=== PATIENT | female | born 1955 | race Caucasian/White ===

== ENCOUNTER 2021-02-25 09:57 | Emergency (ER) | payer MEDICARE, SELFPAY ==
--- NOTE | ~2021-02-25 | CT_ITS ---
EXAMINATION: CT BRAIN CT CERVICAL SPINE WITHOUT CONTRAST XR RIGHT HAND/WRIST XR CHEST EXAM CLINICAL INFORMATION: Fall, weakness and SOB. COMPARISON: None. TECHNIQUE: 5 mm thin axial and reformatted 2 mm thin sagittal and coronal images of brain were obtained. Subsequently, axial 3 mm thin and reformatted 2 mm thin sagittal and coronal images of cervical spine were obtained. DLP 995 mGy-cm. Right hand/wrist 4 views. Chest supine portable 1 view. FINDINGS: CT Brain: There is no acute intra-axial, extra-axial bleed, masses or midline shift. There is no acute infarction in evolution. The lateral ventricles are symmetrical in size and configuration without enlargement. The tirado to white matter difference is maintained normal. There is no edema. Bone windows reveal no calvarial abnormality. There is no scalp soft tissue abnormality. Bilateral paranasal sinuses and mastoid air cells are well aerated. CT Cervical Spine: There is maintained cervical lordosis. There is exaggerated thoracic kyphosis. There is grade 1 anterolisthesis C4 over C5, C5 over C6 and C6 over C7. The craniovertebral junction and the C1-C2 alignment is normal. No visible acute fracture, dislocation or subluxation seen. The neural foramina are patent bilaterally. There are bilateral facet joint arthropathy slightly greater on the left than right. The prevertebral and paravertebral soft tissues are normal. XR Right Hand/Right Wrist. There is a nondisplaced distal radial fracture and a mildly displaced ulnar styloid process fracture. There is moderate dorsal wrist soft tissue swelling. Diffuse osteopenia is noted. XR Chest: The lungs are well-expanded and clear of acute pneumonic process. Plate like atelectasis right midlung. Heart size and pulmonary vascularity is normal. Mild dextroscoliosis. CT/CT cervical spine wo con IMPRESSION: There is no acute intracranial process seen. Exaggerated thoracic kyphosis. There is no acute fracture or dislocation of cervical spine. There is bilateral facet joint arthropathy. There is a nondisplaced fracture distal radius and a minimally displaced fracture ulnar styloid process. Mild platelike atelectasis right midlung. No acute pneumonic process seen. Mild scoliosis..
--- NOTE | ~2021-02-25 | CT_ITS ---
EXAMINATION: CT ANGIOGRAM OF THE CHEST WITH AND WITHOUT CONTRAST (CT PULMONARY ANGIOGRAM FOR PE) CLINICAL INFORMATION: Fall, dizziness, altered mental status. COMPARISON: Chest x-ray earlier today TECHNIQUE: Prior to contrast administration, noncontrast localization images were obtained. Subsequently, multidetector volumetric imaging was performed from the thoracic inlet to below the diaphragms following the administration of 58 mL Omnipaque 350 intravenous contrast. No contrast reaction reported Sagittal, coronal, and MIP oblique sagittal reformatted images were obtained on the CT workstation, uploaded to PACS, and reviewed. This CT examination was performed using dose optimization techniques as appropriate, variously including the following: *Automated exposure control *Adjustment of mA and/or kV according to patient size (this includes techniques or standardized protocols for targeted exams where dose is matched to indication/reason for exam; i.e. extremities or head) *Use of iterative reconstruction technique Total exam dose-length product 321 mGy-cm FINDINGS: The heart is normal in size. There is no pericardial effusion. No pulmonary filling defect to suggest pulmonary embolus. Normal caliber thoracic aorta. No gross mediastinal lymphadenopathy. No enlarged axillary lymph nodes. Central airways are patent although some mild peripheral mucous plugging is noted. Lungs are adequately aerated. Mild emphysematous changes are present. Mild dependent atelectasis. No lobar consolidation. No pleural effusion or pneumothorax. No suspicious pulmonary nodules visualized. Visualized portion of the upper abdomen are grossly unremarkable. Diffuse osteopenia. Mild diffuse degenerative changes of the spine. CT/CT angio chest PE protocol IMPRESSION: 1. No pulmonary embolus. 2. No lobar consolidation, pleural effusion or pneumothorax. VTE: negative
[2021-02-25 10:03] VITALS: BP 144/96; PULSE 96; RESP 16; TEMP 36.6; O2SAT 95; BMI 25.0
--- NOTE | 2021-02-25 10:13 | ECG_ITS ---
Test Reason : FALL Blood Pressure : / mmHG Vent. Rate : 084 BPM Atrial Rate : 084 BPM P-R Int : 152 ms QRS Dur : 072 ms QT Int : 386 ms P-R-T Axes : 045 016 050 degrees QTc Int : 456 ms Normal sinus rhythm Low voltage QRS Otherwise normal ECG No previous ECGs available Referred By: Juan Phillips Electronically Signed By:TEO YOUSIF MD
--- NOTE | 2021-02-25 10:14 | ED_ITS ---
HPI - Fall General Chief Complaint: Fall Stated Complaint: wrist pain Time Seen by Provider: 02/25/21 10:12 Source: patient Mode of arrival: EMS Limitations: no limitations History of Present Illness HPI Narrative: 66 year old female past medical history significant for dementia presents to the emergency department with right wrist pain, and lip laceration status post fall. According to EMS patient was on her morning walk, she fell and is now complaining of right wrist pain. She was collared out of precaution. Patient states that her right wrist is really hurting, she denies headache, neck pain, vision changes. Patient states she is not sure why she fell, she states she thinks she tripped but she does not really remember. She denies preceding chest pain, confusion, shortness of breath. She appears to be little bit confused at this time, not answering questions very clearly. She is unable to elaborate on her responses. Patient denies chest pain, shortness of breath, fevers, chills, nausea, vomiting, abdominal pain, weakness, headache, neck pain, vision changes. This fall was unwitnessed, unsure who called 911. Patient is not on blood thinners MD complaint: fall Fall from: standing Fall witnessed: no Place fall occurred: other (walking around in her neighborhood ) Loss of consciousness: yes Prolonged down time: unclear Symptoms prior to fall: none Context: tripped/slipped Location of injury: mouth (upper lip ) Related Data Home Medications Medication Instructions Recorded Confirmed calcium carbonate 500 mg calcium 500 mg PO DAILY 02/25/21 02/25/21 (1,250 mg) tablet (Calcium 500) cholecalciferol (vitamin D3) 25 25 mcg PO DAILY 02/25/21 02/25/21 mcg (1,000 unit) tablet (Vitamin D3) donepezil 10 mg tablet 10 mg PO BEDTIME 02/25/21 02/25/21 lamotrigine 25 mg tablet 50 mg PO DAILY 02/25/21 02/25/21 memantine 10 mg tablet 10 mg PO BID@0800,1200 02/25/21 02/25/21 olanzapine 5 mg tablet 5 mg PO QID 02/25/21 02/25/21 Allergies Allergy/AdvReac Type Severity Reaction Status Date / Time Unable to Assess Allergy Unverified 02/25/21 10:13 Review of Systems Review of Systems: Constitutional : No Weight loss, No Fever, No Chills, No Fatigue, No Malaise ENT/Mouth : No sore throat, No Rhinorrhea Eyes: No Eye Pain, No Swelling, No Redness Cardiovascular : No Chest Pain, No SOB, No Dyspnea on Exertion, No Orthopnea, No Edema, No Palpitations Respiratory : No Cough, No Sputum, No Wheezing Gastrointestinal : No Nausea, No Vomiting, No Diarrhea, No Constipation, No abdominal Pain, No Hematochezia, No Melena Genitourinary : No Dysuria, No Urinary Frequency, No Hematuria, Musculoskeletal : + joint pain, No Myalgias, No Joint Swelling Skin : No Skin Lesions, No rash, + laceration Neuro : No Weakness, No Numbness, No Dizziness, No Headache All other systems reviewed and are negative PMFSH Past Medical History Attestation statement: The following information was validated with the patient. Source: old records reviewed and nursing notes reviewed Medical History (Updated 02/25/21 @ 14:50 by SARAH Campos) Dementia Social History Social History Alcohol intake: current Alcohol intake frequency: 0-2 drinks per day Alcohol type: wine Patient Tobacco Use Status: Never used Tobacco Use of substances other than those prescribed or required for medical reasons: No Advance Directives: No Advance Directives Information Provided: No Physical Exam Vital Signs: Vital Signs: Last Vital Signs Temp 97.7 F 02/25/21 14:04 Pulse 87 02/25/21 14:04 Resp 16 02/25/21 14:04 BP 132/81 02/25/21 14:04 Pulse Ox 99 02/25/21 14:04 Body Mass Index 25.0 Appearance: Alert.? Oriented X3.? No acute distress.?+ patient is collared Head: Normocephalic, atraumatic, no step-offs or deformities Eyes: Pupils equal, round and reactive to light.? ENT: Pharynx normal.?+ small laceration to upper lip. Bleeding well controlled. Neck: Normal inspection.? Neck supple.? CVS: Normal heart rate and rhythm.? Pulses normal.? Respiratory: No respiratory distress.? Breath sounds normal.? Abdomen: Soft and nontender.? Skin: Skin warm and dry.? Normal skin color.? Normal skin turgor.? Extremities: No lower extremity edema.? No calf ttp. 5/5 strength to left upper and bilateral lower extremities 3/5 strength to right wrist due to pain + pain to palpation over right wrist + pain with ROM of right wrist. Back: No midline tenderness, no C-spine tenderness, full range of motion, no CVA tenderness bilaterally Neuro: Oriented X 3.? No motor deficit.? No sensory deficit. Course Reevaluation(s) Reevaluation #1: Lab show no acute infection, no anemia, no acute electrolyte abnormalities. Coags within normal limits. trop negative. COVID negative. CT of head/brain and C-spine pending. X-ray of right hand pending. Time: 11:15 Reevaluation #2: CT shows no acute intracranial processes. It shows an exaggerated thoracic kyphosis. No acute fractures or dislocation of the cervical spine. There is a nondisplaced fracture distal radius and a minimally displaced fx ulnar styloid process. Chest xray shows mild platelike atelectasis right midlung but no acute pnuemonic process seen. Patient will be placed in a sugar tong splint. D-dimer pending Time: 14:48 Reevaluation #3: D-dimer is noted to be elevated this could be secondary to an acute fracture however this was an unwitnessed fall, patient has dementia and is not a good historian, for this reason a CT will be done to rule out PE Time: 15:30 Additional Reevaluation(s): Sign out will be given to Dr. Ortiz . MDM - Fall MDM Narrative Medical decision making narrative: 1025 66-year-old female past medical history significant for dementia presents the emergency department with right wrist pain, and a small laceration to upper lip status post but patient believes to be a trip and fall. Patient was brought into EMS, and she fell unwitnessed while walking. She denies preceding symptoms. Patient states that she is just having right hip pain. She is collared out of precaution. She is not on blood thinners. On physical examination patient appears comfortable and she is lying on the stretcher in no acute distress. She is answering questions easily. She is collared. S1 and S2 appreciated free of murmurs. Lungs are clear to au scultation bilaterally. Abdomen soft nontender nondistended. Pupils equal round and reactive to light. No lower extremity edema.? No calf ttp. 5/5 strength to left upper and bilateral lower extremities 3/5 strength to right wrist due to pain + pain to palpation over right wrist + pain with ROM of right wrist. 2+ pulses equal and bilateral upper extremities. Head normal cephalic atraumatic no step-offs or deformities. No midline tenderness, no C-spine tenderness. No other distracting injuries are noted. Plan at this time is to obtain a head and neck CT. Basic labs. EKG, troponin, x-ray of right hand and wrist. The chest x-ray. Creatinine kinase, PTT, PT INR, magnesium. Medical Records Attestation: I reviewed the patient's medical records. Lab Data Attestation: I reviewed the patient's lab results. Result diagrams: 02/25/21 11:11 02/25/21 11:10 Labs: Lab Results 02/25/21 02/25/21 02/25/21 Range/Units 11:10 11:10 11:10 WBC (4.8-10.8) X10*3/uL RBC (4.20-5.50) X10*6/uL Hgb (12.0-16.0) g/dl Hct (37.0-47.0) % MCV (80.0-98.0) fL MCH (27.0-33.0) pg MCHC (31.0-35.0) g/dl RDW (11.0-16.0) % Plt Count (160-400) X10*3/uL MPV (9.4-12.3) fL Immature Gran % (Auto) (0.0-0.4) % Neut % (Auto) (45-73) % Lymph % (Auto) (20-40) % [place] % (Auto) (2-11) % Eos % (Auto) (0-4) % Baso % (Auto) (0-2) % Lymph # (Auto) (1.2-4.9) X10*3/uL [place] # (Auto) (0.1-1.2) X10*3/uL Eos # (Auto) (0.0-0.4) X10*3/uL Baso # (Auto) (0.0-0.2) X10*3/uL Abs Immat Gran (auto) (0.00-0.03) X10*3/uL Absolute Neuts (auto) (2.0-8.3) x10*3/uL Absolute Nucleated RBC (0.0-0.012) X10*3/uL Nucleated RBC % (auto) (0.0-0.2) /100WBC PT (9.9-13.0) SEC INR (0.9-1.1) APTT (24.1-38.0) SEC D-Dimer NG/ML Sodium 141 (135-145) mmol/L Potassium 4.2 (3.3-5.1) mmol/L Chloride 103 (96-108) mmol/L Carbon Dioxide 29 (22-29) mmol/L Anion Gap 13 (12-20) BUN 14 (9-16) mg/dL Creatinine 0.86 (0.5-1.4) mg/dL Estim Creat Clear Calc 57.0 Estimated GFR > 60 Random Glucose 120 H (60-115) mg/dL Calcium 10.0 (8.4-10.2) mg/dL Magnesium 2.1 (1.6-2.6) mg/dL Total Bilirubin 0.6 (0.0-1.0) mg/dL AST 25 (5-31) U/L ALT 25 (0-31) U/L Alkaline Phosphatase 99 (39-117) U/L Total Creatine Kinase 107 (26-140) U/L Troponin I High Sens < 3.5 (<3.5-17.0) ng/L Total Protein 6.9 (6.5-8.0) g/dL Albumin 4.5 (3.5-5.0) g/dL COVID-19 ([facility]) Negative (Negative) COVID-19 Clin Com See Note 02/25/21 02/25/21 Range/Units 11:10 11:11 WBC 8.0 (4.8-10.8) X10*3/uL RBC 5.13 (4.20-5.50) X10*6/uL Hgb 15.3 (12.0-16.0) g/dl Hct 46.2 (37.0-47.0) % MCV 90.1 (80.0-98.0) fL MCH 29.8 (27.0-33.0) pg MCHC 33.1 (31.0-35.0) g/dl RDW 12.3 (11.0-16.0) % Plt Count 194 (160-400) X10*3/uL MPV 9.0 L (9.4-12.3) fL Immature Gran % (Auto) 0.4 (0.0-0.4) % Neut % (Auto) 81.8 H (45-73) % Lymph % (Auto) 9.1 L (20-40) % [place] % (Auto) 7.1 (2-11) % Eos % (Auto) 1.1 (0-4) % Baso % (Auto) 0.5 (0-2) % Lymph # (Auto) 0.7 L (1.2-4.9) X10*3/uL [place] # (Auto) 0.6 (0.1-1.2) X10*3/uL Eos # (Auto) 0.1 (0.0-0.4) X10*3/uL Baso # (Auto) 0.0 (0.0-0.2) X10*3/uL Abs Immat Gran (auto) 0.03 (0.00-0.03) X10*3/uL Absolute Neuts (auto) 6.6 (2.0-8.3) x10*3/uL Absolute Nucleated RBC 0.000 (0.0-0.012) X10*3/uL Nucleated RBC % (auto) 0.0 (0.0-0.2) /100WBC PT 11.1 (9.9-13.0) SEC INR 1.0 (0.9-1.1) APTT 35.1 (24.1-38.0) SEC D-Dimer 2082 NG/ML Sodium (135-145) mmol/L Potassium (3.3-5.1) mmol/L Chloride (96-108) mmol/L Carbon Dioxide (22-29) mmol/L Anion Gap (12-20) BUN (9-16) mg/dL Creatinine (0.5-1.4) mg/dL Estim Creat Clear Calc Estimated GFR Random Glucose (60-115) mg/dL Calcium (8.4-10.2) mg/dL Magnesium (1.6-2.6) mg/dL Total Bilirubin (0.0-1.0) mg/dL AST (5-31) U/L ALT (0-31) U/L Alkaline Phosphatase (39-117) U/L Total Creatine Kinase (26-140) U/L Troponin I High Sens (<3.5-17.0) ng/L Total Protein (6.5-8.0) g/dL Albumin (3.5-5.0) g/dL COVID-19 ([facility]) (Negative) COVID-19 Clin Com Imaging Data Chest x-ray and right wrist: Attestation: I personally reviewed and interpreted this imaging study as follows: Radiologist's impression: XR/XR chest 1V IMPRESSION: There is no acute intracranial process seen. ? Exaggerated thoracic kyphosis. There is no acute fracture or dislocation of cervical spine. There is bilateral facet joint arthropathy. ? There is a nondisplaced fracture distal radius and a minimally displaced fracture ulnar styloid process. ? Mild platelike atelectasis right midlung. No acute pneumonic process seen. Mild scoliosis.. CT head/neck/ cspine : Attestation: I personally reviewed and interpreted this imaging study as follows: Radiologist's impression: CT/CT cervical spine wo con IMPRESSION: There is no acute intracranial process seen. ? Exaggerated thoracic kyphosis. There is no acute fracture or dislocation of cervical spine. There is bilateral facet joint arthropathy. ? There is a nondisplaced fracture distal radius and a minimally displaced fracture ulnar styloid process. ? Mild platelike atelectasis right midlung. No acute pneumonic process seen. Mild scoliosis.. ECG Data Attestation: I personally reviewed and interpreted this ECG as follows: ECG interpretation date: 02/25/21 ECG interpretation time: 12:53 Prior ECG tracings: not available for review Interpretation: Ventricular rate of 84, OH interval normal QRS normal QTC/QTC normal. EKG shows normal sinus rhythm, low voltage. No ST elevations or inversions, no acute ischemia. No previous EKGs to compare with. Critical Care Time Critical Care Time Critical Care Time: No Discharge Plan Discharge Clinical Impression: Fall, Distal radius fracture, Fracture of ulnar styloid Patient Disposition: Home, Self-Care Instructions: Fall Prevention for Older Adults (ED), Fall Prevention (ED) Additional Instructions: Follow-up with your primary care provider this week and Orthopedics Return to the emergency department with new or worsening symptoms. In case of emergency call 911 Prescriptions: No Action donepezil 10 mg tablet 10 mg PO BEDTIME RF: 0 olanzapine 5 mg tablet 5 mg PO QID RF: 0 lamotrigine 25 mg tablet 50 mg PO DAILY RF: 0 calcium carbonate [Calcium 500] 500 mg calcium (1,250 mg) Tablet 500 mg PO DAILY RF: 0 memantine 10 mg tablet 10 mg PO BID@0800,1200 RF: 0 cholecalciferol (vitamin D3) [Vitamin D3] 25 mcg (1,000 unit) Tablet 25 mcg PO DAILY RF: 0 Referrals: Gio Cedeno MD [Physician] - 1 week Catracho So DO [Primary Care Provider] - 2 days
--- NOTE | 2021-02-25 11:11 | PHA.MEDREC ---
Pharmacy Consult ? Medication Reconciliation Pharmacy has completed the medication reconciliation. There are no remarkable issues for provider's attention. Patient's confirmed patient's olanzapine dose is 5 mg QID and that she is no longer taking quetiapine. Keerthi Smith, PharmD
[2021-02-25 11:15] LABS: MANUAL DIFF FLAG NO
[2021-02-25 11:23] LABS: Basophils Percent Auto 0.5 % (0-2); Eosinophils Absolute Auto 0.1 X10*3/uL (0.0-0.4); Eosinophils Percent Auto 1.1 % (0-4); Hematocrit 46.2 % (37.0-47.0); Hemoglobin 15.3 g/dl (12.0-16.0); Imm Gran Abs Auto 0.03 X10*3/uL (0.00-0.03); Imm Gran Pct Auto 0.4 % (0.0-0.4); Lymphocytes Absolute Auto 0.7 X10*3/uL (1.2-4.9); Lymphocytes Percent Auto 9.1 % (20-40); Mean Corpuscular HGB Conc 33.1 g/dl (31.0-35.0); Mean Corpuscular Hemoglobin 29.8 pg (27.0-33.0); Mean Corpuscular Volume 90.1 fL (80.0-98.0); Monocytes Absolute Auto 0.6 X10*3/uL (0.1-1.2); Monocytes Percent Auto 7.1 % (2-11); Neutrophils Absolute Auto 6.6 x10*3/uL (2.0-8.3); Neutrophils Percent Auto 81.8 % (45-73); Platelet Count 194 X10*3/uL (160-400); Red Blood Count 5.13 X10*6/uL (4.20-5.50); Red Cell Distribution Width 12.3 % (11.0-16.0)
[2021-02-25 11:26] LABS: Prothrombin Time 11.1 SEC (9.9-13.0)
[2021-02-25 11:29] LABS: Partial Thromboplastin Time 35.1 SEC (24.1-38.0)
[2021-02-25 11:33] LABS: COVID-19 Test Negative (Negative)
[2021-02-25] MEDS: Acetaminophen 325 MG TABLET 650 MG PO (11:35)
[2021-02-25 11:39] LABS: Alanine Aminotransferase 25 U/L (0-31); Albumin Level 4.5 g/dL (3.5-5.0); Alkaline Phosphatase 99 U/L (39-117); Anion Gap 13 (12-20); Aspartate Amino Transferase 25 U/L (5-31); Bilirubin Total 0.6 mg/dL (0.0-1.0); Blood Urea Nitrogen 14 mg/dL (9-16); Carbon Dioxide 29 mmol/L (22-29); Chloride 103 mmol/L (96-108); Estimated Glomerular Filt Rate > 60; Glucose Random 120 mg/dL (60-115); Magnesium 2.1 mg/dL (1.6-2.6); Potassium 4.2 mmol/L (3.3-5.1); Sodium 141 mmol/L (135-145); Total Protein 6.9 g/dL (6.5-8.0)
[2021-02-25 11:44] LABS: Troponin-I High Sensitivity < 3.5 ng/L (<3.5-17.0)
[2021-02-25 14:04] VITALS: BP 132/81; PULSE 87; RESP 16; TEMP 36.5; O2SAT 99
[2021-02-25 15:01] LABS: D Dimer 2082 NG/ML
[2021-02-25] MEDS: iohexoL 350 MG/ML 100 ML INFUS..BTL IV (16:44)
[2021-02-25 17:35] VITALS: BP 126/97; PULSE 95; RESP 18; O2SAT 98
--- NOTE | 2021-02-25 17:36 | PC.NURSE ---
pt resting in the stretcher, respirations even and unlabored, vs stable, pt reports feeling much better but unable to give a number for her pain level at this time, some dry blood around the lips and teeth but no broken teeth noticed family member at bedside.
== END 2021-02-25 18:15 | disposition home or self-care (01) ==
PROVIDERS: Physician Assistant; Emergency Provider Emergency Medicine; PCP Family Medicine
DX: S52.501A Unspecified fracture of the lower end of right radius, initial encounter for closed fracture (principal); M25.531 Pain in right wrist; M54.2 Cervicalgia; G44.309 Post-traumatic headache, unspecified, not intractable; W01.0XXA Fall on same level from slipping, tripping and stumbling without subsequent striking against object, initial encounter; Y93.9 Activity, unspecified; Y92.9 Unspecified place or not applicable; Y99.9 Unspecified external cause status; Z20.822 Contact with and (suspected) exposure to COVID-19; Z79.899 Other long term (current) drug therapy
CPT/HCPCS: 36415; 70450; 71045; 71275; 72125; 73110; 73130; 80053; 82550; 83735; 84484; 85025; 85379; 85610; 85730; 87635; 93005; 99285; Q9967

== ENCOUNTER → 2021-02-28 10:39 | Outpatient (BNVA) | payer MEDICARE, SELFPAY | PROVIDERS: PCP Family Medicine; Visit Provider Physician Assistant | DX: S52.501A Unspecified fracture of the lower end of right radius, initial encounter for closed fracture (principal) | CPT/HCPCS: 99202 ==

== ENCOUNTER 2021-03-03 09:18 | Day surgery (SDC) | payer MEDICARE, SELFPAY ==
[2021-03-03] VITALS (7 sets, daily range): BP systolic 109–135; BP diastolic 48–78; PULSE 81–91; RESP 14–16; TEMP 36.4–36.8; O2SAT 95–100; BMI 25.7
--- NOTE | ~2021-03-03 | FL_ITS ---
EXAMINATION: XR FLUOROSCOPY WITH IMAGES CLINICAL INFORMATION: Fracture reduction COMPARISON: X-rays dated 02/25/2021 TECHNIQUE: Fluoroscopy performed by Dr Ma. Fluoroscopy time: 61.5 seconds DAP: [id number] Images: 4 FL/FL guidance in OR FINDINGS/IMPRESSION: * Images demonstrate placement of a plate and screws across the comminuted fracture of the distal radial metaphysis with improved alignment of the fracture fragments. Stable alignment of the minimally displaced ulnar styloid avulsion fracture. * Please see operative report.
[2021-03-03] MEDS: Lactated Ringers 1,000 ML 100 ML IVCONT (10:03)
--- NOTE | 2021-03-03 10:17 | HO.ANESPROP2 ---
[facility] Active Problems Active Problems: All Active Problems (Updated 02/28/21 @ 12:52 by Pia Arias PA-C) Distal radius fracture, right (Acute) Past Medical History Medical History Dementia Social History Social History (Updated 02/28/21 @ 11:04 by Onesimo Bernabe) Alcohol intake: current Alcohol intake frequency: 0-2 drinks per day Alcohol type: wine Patient Tobacco Use Status: Never used Tobacco Use of substances other than those prescribed or required for medical reasons: No Are you DNR?: No Advance Directives: Yes Advance Directives on File: Yes Advance Directives Date on File: 03/03/21 Recently lost weight without trying: No Nutrition Risks: No Nutritional Risk Patient : No Current occupational status: disabled Current occupation: rt handed Meds Allergies Allergy/AdvReac Type Severity Reaction Status Date / Time No Known Allergies Allergy Verified 02/28/21 14:09 Home Medications Medication Instructions Recorded Confirmed Last Taken Type calcium carbonate 500 mg calcium 500 mg PO DAILY 02/25/21 02/25/21 02/25/21 History (1,250 mg) tablet (Calcium 500) cholecalciferol (vitamin D3) 25 25 mcg PO DAILY 02/25/21 02/25/21 02/25/21 History mcg (1,000 unit) tablet (Vitamin D3) donepezil 10 mg tablet 10 mg PO BEDTIME 02/25/21 02/25/21 02/24/21 History lamotrigine 25 mg tablet 50 mg PO DAILY 02/25/21 02/25/21 03/03/21 History memantine 10 mg tablet 10 mg PO BID@0800,1200 02/25/21 02/25/21 03/03/21 History olanzapine 5 mg tablet 5 mg PO QID 02/25/21 02/25/21 02/25/21 History Exam Exam Date and Time: March 03, 2021 1017 Height,Weight and Vital Signs: Height 5 ft 4 in Weight 68.039 kg Last Vital Signs Temp 98.3 F 03/03/21 09:49 Pulse 81 03/03/21 09:49 Resp 16 03/03/21 09:49 BP 130/78 03/03/21 09:49 Pulse Ox 97 03/03/21 09:49 Airway Mallampati Class: III TM Dist: >3cm Neck ROM: Full
--- NOTE | 2021-03-03 11:32 | P.OP_ITS ---
Operative Note Operative Note Date of Service: 03/03/21 Narrative: Operative Note Narrative: Preop diagnosis: 1. Right Distal radius fracture, intra-articular comminuted Postop diagnosis: Same Procedure: 1. Right Distal radius fracture open reduction internal fixation, 2 part intra-articular Surgeon: Gemma Ma MD Anesthesia: Mac plus regional block Findings: Intra-articular distal radius fracture Implants: A 3 hole Accu Med volar locking plate, with 4. X 2.3 mm locking pegs/screws, and 3 3.5 mm cortical screws Tourniquet time: 39 minutes EBL: 5.0 ml Specimen: None Drains: None Complications: None Disposition: Brought to the recovery room in stable condition Plan: Follow-up in 10-14 days for wound check, suture removal and postop radiographs The patient will be placed in either a short-arm cast or a volar wrist splint. Encouraged no lifting of anything heavier than a cell phone. Please encourage active and passive range of motion of the digits. Follow-up at 4-5 weeks postop for repeat radiographs. Indications: The patient is a 66 year old woman with Alzheimer's disease with a right comminuted intra-articular distal radius fracture . The risks and benefits of operative treatment, including but not limited to risk of damage to blood vessels, nerves, tendons, infection, recurrence, persistent pain or numbness, incomplete resolution of preoperative symptoms, or need for further surgery were discussed with the patient and they wished to proceed with surgery. Procedure: Once consent was obtained patient was brought back to the operating suite and placed in the operating table in a supine position. A regional block was performed by the anesthesia team. Perioperative antibiotics and anesthesia was administered by the anesthesia team. A tourniquet was applied to the proximal aspect of the right upper extremity and the limb was prepped and draped in a standard surgical fashion. The limb was elevated exsanguinated with Esmarch bandage and the tourniquet inflated to 250 mm of mercury for a total tourniquet time of 39 minutes. The FluoroScan was used throughout the case to assess our reduction, and facilitate implant placement. I made an 8 cm longitudinal incision over the right distal aspect of the flexor carpi radialis tendon. The incision was made through the skin to the subcutaneous tissue using a 15. Blade. Then carefully dissected down to flexor carpi radialis tendon she tenotomy scissors. The FCR tendon sheath was then incised longitudinally using tenotomy scissors under direct visualization. The FCR tendon was then retracted ulnarly. I then made a longitudinal incision in the volar forearm fascia through the floor of FCR tendon sheath using tenotomy scissors under direct visualization. I identified the interval between the radial artery and the flexor tendons. This interval was developed further with my index finger, releasing some of the muscular fibers of the flexor pollicis longus. A dull weatlander retractor was then placed. I then created an ulnarly based flap of the pronator quadratus by releasing the radial and distal edges using a 15. Blade. A Jasmine elevator was used to elevate the pronator quadratus from the volar surface of the distal radius. This then revealed to us our distal radius fracture. An open reduction was then performed on our distal radius fracture. I then placed a short narrow 3 hole Accu Med volar locking plate on the volar surface of the distal radius. I placed a single K-wire through the distal aspect of the plate and into the distal radius. This was assessed using fluoroscopic images. I was satisfied with the placement of our plate. I then placed 4. X 2.3 mm locking screws/pegs in the distal aspect of the plate and distal radius by 1st drilling bicortically with a 1.8 mm drill bit, measuring with a depth gauge, and placing the appropriate length locking screws/pegs. The placement of our plate and screws was then assessed again using fluoroscopic images. The once satisfied with the placement of the volar locking plate and screws on the distal aspect of the distal radius, the plate was then reduced to the shaft of the radius. I then placed 3 3.5 mm cortical screws to the proximal aspect of the plate and into the shaft of the radius. This was done by 1st drilling bicortically with a 2.8 mm drill bit, measuring with a depth gauge, and placing the appropriate length screw. Final radiographs were then obtained. The DRUJ was assessed and found to be stable on exam. I was satisfied with our reduction and placement of all implants. At this point the wound was irrigated with normal saline. The pronator emory dratus was reduced back over the volar locking plate using some 3-0 Vicryl suture material. The tourniquet was then deflated and hemostasis was obtained with a brief period of local pressure and bipolar monopolar electrocautery. The subcutaneous layer was then reapproximated using some 4-0 Vicryl suture, and the skin edges were reapproximated using some 5 0 Prolene suture. The wound was then infiltrated with some 1% lidocaine with epinephrine postop pain control. A sterile dressing and a short dorsal splint allowing for active flexion and extension of the digits was applied. The patient appears to have tolerated the procedure well and with no complications. All digits were well vascularized conclusion of the case.
--- NOTE | 2021-03-03 11:32 | MHC.SHP ---
Pre-Procedural Eval Section A Date of Service: 03/03/21 The patient is an INPATIENT: No Changes since office visit: No Cold of Flu in the past 2 weeks, No New Medical Problems, No Changes in Medication and No Patient answered all questions The History & Physical has been completed within 30 days and I have reviewed it.: Yes Section B Chief Complaint: wrist fx Allergies: Allergies Allergy/AdvReac Type Severity Reaction Status Date / Time No Known Allergies Allergy Verified 02/28/21 14:09 Plan I have reviewed the history and physical and performed a pertinent physical examination on my patient. No changes have occurred unless specified.
== END 2021-03-03 14:14 | disposition home or self-care (01) ==
PROVIDERS: PCP Family Medicine; Visit Provider Orthopaedic Surgery
PROC: (CPT 25608; principal; 2021-03-03 10:30)
DX: S52.571A Other intraarticular fracture of lower end of right radius, initial encounter for closed fracture (principal); W01.0XXA Fall on same level from slipping, tripping and stumbling without subsequent striking against object, initial encounter; Y93.01 Activity, walking, marching and hiking; Y92.9 Unspecified place or not applicable; Y99.8 Other external cause status; G30.0 Alzheimer's disease with early onset; F02.80 Dementia in other diseases classified elsewhere, unspecified severity, without behavioral disturbance, psychotic disturbance, mood disturbance, and anxiety
CPT/HCPCS: 25608; C1713; C1769; J0690; J1100; J2370; J2405

== ENCOUNTER 2021-03-18 10:02 | Outpatient (REF) | payer MEDICARE, SELFPAY ==
--- NOTE | ~2021-03-18 | XR_ITS ---
EXAMINATION: XR WRIST, RIGHT CLINICAL INFORMATION: Fracture COMPARISON: Previous x-rays February 2021 TECHNIQUE: PA, lateral, and oblique views of the right wrist. FINDINGS: There is a plate and screws transfixing the right distal radius fracture. Orthopedic hardware appears unchanged. Fracture line is still seen. Alignment is unchanged. There is a ulnar styloid fracture. There is widening of the scapholunate joint and dorsal tilt of the lunate. 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 Bones are osteopenic. There is diffuse soft tissue swelling. XR/XR wrist RT min 3V IMPRESSION: ORIF of right distal radius fracture. Ulnar styloid fracture. 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
== END 2021-03-18 10:03 | disposition home or self-care (01) ==
LOC: HO.HOSX 10:02
PROVIDERS: Visit Provider Orthopaedic Surgery
DX: M25.531 Pain in right wrist (principal); S52.501A Unspecified fracture of the lower end of right radius, initial encounter for closed fracture; X58.XXXA Exposure to other specified factors, initial encounter; Y93.9 Activity, unspecified; Y92.9 Unspecified place or not applicable; Y99.8 Other external cause status; Z48.02 Encounter for removal of sutures; G30.9 Alzheimer's disease, unspecified; F02.80 Dementia in other diseases classified elsewhere, unspecified severity, without behavioral disturbance, psychotic disturbance, mood disturbance, and anxiety
CPT/HCPCS: 73110; 99212

== ENCOUNTER 2021-04-15 10:10 | Outpatient (REF) | payer MEDICARE, SELFPAY ==
--- NOTE | ~2021-04-15 | XR_ITS ---
EXAMINATION: XR WRIST, RIGHT CLINICAL INFORMATION: Follow-up fracture COMPARISON: Previous x-ray most recent March 2021 TECHNIQUE: PA, lateral, and oblique views of the right wrist. FINDINGS: There is a plate and screws transfixing the right distal radius fracture. Orthopedic hardware appears intact. Fracture lines appear more indistinct suggestive of evidence of healing. There is an ulnar styloid fracture that appears unchanged. The bones are osteopenic. There is arthritis at the first SHELTER and trapezoid trapezium scaphoid joints. There is again question of widening of scapholunate joint and dorsal tilt of the lunate on the lateral view. Soft tissues are unremarkable. XR/XR wrist RT min 3V IMPRESSION: ORIF of right distal radius fracture. Ulnar styloid fracture. Degenerative changes and question widened scapholunate joint.
== END 2021-04-15 10:11 | disposition home or self-care (01) ==
LOC: HO.HOSX 10:10
PROVIDERS: Visit Provider Orthopaedic Surgery
DX: S52.501D Unspecified fracture of the lower end of right radius, subsequent encounter for closed fracture with routine healing (principal)
CPT/HCPCS: 73110; 99212